=== PATIENT | female | born 1985 | race Caucasian/White ===

== ENCOUNTER 2017-04-14 17:51 | Emergency (ER) | payer BC, OTHER ==
[~2017-04-14] VITALS: Ht 167.6 cm; Wt 61.4 kg
[~2017-04-14 17:51] MED LIST: PRENTAB26 PO; PRLSR20 PO; ZVRUNK PO
[2017-04-14 18:13] VITALS: Ht 167.6 cm; Wt 61.4 kg
[2017-04-14 19:17] LABS: BASO % 0.1 %; BASO ABS # 0.02 K/uL (0-0.2); COMPLETE YES; EOS % 1.3 %; HEMATOCRIT 30.2 % (37-47); IG% 0.2 %; LYMPH % 15.3 %; LYMPH ABS # 2.52 K/uL (1.2-3.4); MEAN CELL VOLUME 92.1 fL (80-100); MEAN CORPUSCULAR HEMOGLOBIN 31.4 pg (25-34); MEAN CORPUSCULAR HGB CONC 34.1 g/dl (32-36); MEAN PLATELET VOLUME 10.5 fL (7.4-10.4); MONO % 6.8 %; NEUT % 76.3 %; PLATELET COUNT 210 K/uL (130-400); RED BLOOD COUNT 3.28 M/uL (4.2-5.4); WHITE BLOOD COUNT 16.43 K/uL (4.8-10.8)
[2017-04-14 19:19] LABS: URINE APPEARANCE CLOUDY (CLEAR); URINE BILIRUBIN NEG (NEG); URINE COLOR YELLOW; URINE EPITHELIAL CELL AUTO >30 /lpf (0-5); URINE NITRITE POS (NEG); URINE PH 5.5 (4.5-7.5); URINE SPECIFIC GRAVITY 1.018 (1.000-1.030); UROBILINOGEN NEG (NEG); ZZUR CULT IF INDIC CLEAN CATCH YES
[2017-04-14] MEDS ORDERED: CEFTRIAXONE SOD INJ 1 GM ADDVIAL IV STA (19:22)
[2017-04-14 19:27] LABS: MANUAL MICROSCOPIC REQUIRED? NO; REVIEW REQ? YES
[2017-04-14 19:33] LABS: BUN/CREATININE RATIO 19.7 (10-20); CREATININE 0.59 mg/dl (0.60-1.20); POTASSIUM 3.3 mmol/L (3.5-5.1)
--- NOTE | 2017-04-14 20:03 | EMERGENCY ROOM VISIT NOTE ---
History Report prepared by Stephany: Francisco Rosales Under the Supervision of: Dr. Wilfred Charles M.D. First contact with patient: 18:38 Chief Complaint: URINARY SYMPTOMS Stated Complaint: SEVERE UTI SX, BACK HIP PAIN R SIDE, LOSS OF BLADD Nursing Triage Summary: 21 weeks preg. started with urinary inc. last night with a lot of back pain , pt reports 1 day ago had dysuria and urinary freq. History of Present Illness The patient is a 31 year old female who presents to the Emergency Room with complaints of constant back pain that started last night. She rates her pain as a 7/10 in severity. The patient states that she is [facility] She admits [facility] and she has two children. The patient states that she has not had any issues with her . She reports that recently she has been having a hard time controlling her bladder. The patient states that she has been coughing and vomiting, but admits that she believes this is normal for her . The patient also reports that she noticed clear vaginal discharge a week ago that she thought was normal, and she denies any foul smell. She states that yesterday she started to experiencing a burning sensation when urinating and noticed that she has been frequently urinating. The patient also admits she has been experiencing back pain since last night. The patient admits she has had UTIs in the past and reports she frequently gets them. She states that she has been keeping up with fluid intake. The patient denies a history lung, heart, kidney, lung, or spleen issues. She admits that she is allergic to Bactrim. The patient denies any fever. Source of History: patient Onset: last night Position: back Symptom Intensity: 7/10 Timing: constant Associated Symptoms: + cough, + vomiting, + urinary symptoms, No fevers Review of Systems See HPI for pertinent positives & negatives. A total of 10 systems reviewed and were otherwise negative. Past Medical & Surgical Medical Problems: (1) Anxiety (2) Bunion (3) Depression (4) Umbilical hernia Surgical Problems: (1) H/O wisdom tooth extraction Family History Diabetes mellitus Liver failure Social History Smoking Status: Current Every Day Smoker Alcohol Use: none Drug Use: none Marital Status: Housing Status: lives with family Occupation Status: unemployed Current/Historical Medications Scheduled Cefdinir (Omnicef), 300 MG PO Q12H Multivit/Min/Iron/Fol Ac/Pren ( Vitamin), 1 TAB PO DAILY Allergies Coded Allergies: Sulfamethoxazole w/Trimethoprim (Verified Allergy, Severe, SHORTNESS OF BREATH, 05/14/10) Physical Exam Vital Signs Date Time Temp Pulse Resp B/P (MAP) Pulse Ox O2 Delivery O2 Flow Rate FiO2 04/14/17 20:43 36.8 97 16 106/59 97 04/14/17 18:13 37.4 91 20 100 Room Air Physical Exam GENERAL: Patient is in no acute distress. HEENT: No acute trauma, normocephalic atraumatic, mucous membranes moist, no nasal congestion, no scleral icterus. NECK: No stridor, no adenopathy, no meningismus, trachea is midline. LUNGS: Clear to auscultation bilaterally, no wheeze, no rhonchi, breath sounds equal. HEART: Without murmurs gallops or rubs, regular rate and rhythm. ABDOMEN: Soft, nontender, bowel sounds positive, no hernias, no peritonitis. Gravid uterus. BACK: Right more so than left flank discomfort with percussion EXTREMITIES: No cyanosis or edema, full range of motion of all the joints without pain or difficulty, no signs for acute trauma. NEUROLOGIC: Oriented x 3, no acute motor or sensory deficits, no focal weakness. SKIN: No rash, no jaundice, no diaphoresis. Medical Decision & Procedures ER Provider Diagnostic Interpretation: Radiology results as stated below per my review and radiologist interpretation: ULTRASOUND KIDNEYS AND BLADDER CLINICAL HISTORY: Flank pain. COMPARISON STUDY: No priors. TECHNIQUE: Real-time, grayscale, and color flow sonography of the kidneys and bladder is performed. Images are reviewed in the transverse and longitudinal planes. FINDINGS: Kidneys: The kidneys are normal in size and echotexture. The right kidney measures 11.2 cm in length and the left kidney measures 11.8 cm in length. There is mild fullness of the renal collecting system bilaterally without evidence of hydronephrosis. No shadowing renal calculi are identified. There is no sonographic evidence of contour deforming renal mass lesion. No perinephric fluid is identified. Bladder: Debris is noted within the bladder lumen. Ureteral jets were not seen. Pelvis: A live intrauterine gestation is noted. This shows an estimated heart rate of 154 bpm. IMPRESSION: 1. The kidneys are normal in size and without hydronephrosis. 2. The bladder is filled with intraluminal debris. Correlation clinically and with urinalysis for evidence of cystitis. 3. A live intrauterine gestation is noted in the pelvis. Electronically signed by: Wilfred Beebe M.D. 04/14/2017 8:14 PM Dictated Date/Time: 04/14/2017 8:12 PM Laboratory Results 04/14/17 18:00 Red Blood Count 3.28, Mean Corpuscular Volume 92.1, Mean Corpuscular Hemoglobin 31.4, Mean Corpuscular Hemoglobin Concent 34.1, Mean Platelet Volume 10.5, Neutrophils (%) (Auto) 76.3, Lymphocytes (%) (Auto) 15.3, Monocytes (%) (Auto) 6.8, Eosinophils (%) (Auto) 1.3, Basophils (%) (Auto) 0.1, Neutrophils # (Auto) 12.53, Lymphocytes # (Auto) 2.52, Monocytes # (Auto) 1.12, Eosinophils # (Auto) 0.21, Basophils # (Auto) 0.02 04/14/17 18:00 Test 04/14/17 18:00 04/14/17 18:45 White Blood Count 16.43 K/uL (4.8-10.8) Red Blood Count 3.28 M/uL (4.2-5.4) Hemoglobin 10.3 g/dL (12.0-16.0) Hematocrit 30.2 % (37-47) Mean Corpuscular Volume 92.1 fL (80-100) Mean Corpuscular Hemoglobin 31.4 pg (25-34) Mean Corpuscular Hemoglobin Concent 34.1 g/dl (32-36) Platelet Count 210 K/uL (130-400) Mean Platelet Volume 10.5 fL (7.4-10.4) Neutrophils (%) (Auto) 76.3 % Lymphocytes (%) (Auto) 15.3 % Monocytes (%) (Auto) 6.8 % Eosinophils (%) (Auto) 1.3 % Basophils (%) (Auto) 0.1 % Neutrophils # (Auto) 12.53 K/uL (1.4-6.5) Lymphocytes # (Auto) 2.52 K/uL (1.2-3.4) Monocytes # (Auto) 1.12 K/uL (0.11-0.59) Eosinophils # (Auto) 0.21 K/uL (0-0.5) Basophils # (Auto) 0.02 K/uL (0-0.2) RDW Standard Deviation 44.4 fL (36.4-46.3) RDW Coefficient of Variation 13.2 % (11.5-14.5) Immature Granulocyte % (Auto) 0.2 % Immature Granulocyte # (Auto) 0.03 K/uL (0.00-0.02) Anion Gap 11.0 mmol/L (3-11) Est Creatinine Clear Calc Drug Dose 128.1 ml/min Estimated GFR () 140.6 Estimated GFR (Non- 121.3 BUN/Creatinine Ratio 19.7 (10-20) Calcium Level 8.0 mg/dl (8.5-10.1) Urine Color YELLOW Urine Appearance CLOUDY (CLEAR) Urine pH 5.5 (4.5-7.5) Urine Specific [place] 1.018 (1.000-1.030) Urine Protein 2+ (NEG) Urine Glucose (UA) NEG (NEG) Urine Ketones NEG (NEG) Urine Occult Blood 2+ (NEG) Urine Nitrite POS (NEG) Urine Bilirubin NEG (NEG) Urine Urobilinogen NEG (NEG) Urine Leukocyte Esterase MODERATE (NEG) Urine WBC (Auto) >30 /hpf (0-5) Urine RBC (Auto) >30 /hpf (0-4) Urine Hyaline Casts (Auto) 1-5 /lpf (0-5) Urine Epithelial Cells (Auto) >30 /lpf (0-5) Urine Bacteria (Auto) 4+ (NEG) Urine Renal Epithelial Cells 0-5 /lpf (0-5) Urine Yeast (Auto) (NONE PRSENT) Laboratory results reviewed by me. Medications Administered Medications (Trade) Dose Ordered Sig/Ella Route Start Time Stop Time Status Last Admin Dose Admin Ceftriaxone Sodium (Rocephin Inj) 1 gm NOW STAT IV 04/14/17 19:22 04/14/17 19:23 DC 04/14/17 19:33 1 GM Acetaminophen (Tylenol Tab) 1,000 mg NOW STAT PO 04/14/17 20:34 04/14/17 20:35 DC 04/14/17 20:43 1,000 MG ED Course 1839: The patient was evaluated in room A12B. A complete history and physical exam was performed. 1921: Ordered Rocephin Injection 1 gm IV. 2029: I discussed the patient's case with Finn Aceves ELECTRICAL DESIGNER. He reports that she can go home and they will see her this week. 2033: Ordered Tylenol Tab 1000 mg PO. 2034: Reevaluated the patient. Discussed results and discharge instructions: She verbalized understanding and agreement. The patient is ready for discharge. Medical Decision The patient is a 31 year old female who presents to the ED with complaints of constant back pain that began last night. Differential diagnoses considered include UTI, pyelonephritis , renal colic, hydronephrosis, renal failure, and musculoskeletal pain, There is a moderate leukocytosis with a white count of 16,000, this could be consistent with infection. A mild anemia was present. No renal failure or significant electrolyte abnormality. Urinalysis does suggest infection. Urine culture is pending. Renal ultrasound did not show any significant hydronephrosis. The patient was given oral Tylenol for pain, she received IV ceftriaxone for antibiotic coverage. I spoke to the patient's bpm developer, the patient can be discharged on Omnicef with outpatient follow-up. If she is worsening, she needs to return. She does appear to have a pyelonephritis. Medication Reconcilliation Current Medication List: was personally reviewed by me Blood Pressure Screening Patient's blood pressure: Normal blood pressure Consults Time Called: 2029 Consulting Physician: Finn Aceves ELECTRICAL DESIGNER Returned Call: 2029 I discussed the patient's case with Finn Aceves ELECTRICAL DESIGNER. He reports that she can go home and they will see her this week. Impression Primary Impression: Pyelonephritis Additional Impression: Scribe Attestation The scribe's documentation has been prepared under my direction and personally reviewed by me in its entirety. I confirm that the note above accurately reflects all work, treatment, procedures, and medical decision making performed by me. Departure Information Dispostion Home / Self-Care Prescriptions Cefdinir (OMNICEF) 300 Mg Cap 300 MG PO Q12H for 10 Days, #20 CAP Prov: Wilfred Charles M.D. 04/14/17 Referrals Pilgram, Uzair A.,M.D. Forms HOME CARE DOCUMENTATION FORM, IMPORTANT VISIT INFORMATION Patient Instructions My [facility] Additional Instructions follow with ob this week fluids rest tylenol for pain omnicef 2x per day for 10 days return for vomiting, worsening symptoms, fever or if not improving Problem Qualifiers
--- NOTE | 2017-04-14 20:16 | DIAGNOSTIC IMAGING REPORT ---
ULTRASOUND KIDNEYS AND BLADDER CLINICAL HISTORY: Flank pain. COMPARISON STUDY: No priors. TECHNIQUE: Real-time, grayscale, and color flow sonography of the kidneys and bladder is performed. Images are reviewed in the transverse and longitudinal planes. FINDINGS: Kidneys: The kidneys are normal in size and echotexture. The right kidney measures 11.2 cm in length and the left kidney measures 11.8 cm in length. There is mild fullness of the renal collecting system bilaterally without evidence of hydronephrosis. No shadowing renal calculi are identified. There is no sonographic evidence of contour deforming renal mass lesion. No perinephric fluid is identified. Bladder: Debris is noted within the bladder lumen. Ureteral jets were not seen. Pelvis: A live intrauterine gestation is noted. This shows an estimated heart rate of 154 bpm. IMPRESSION: 1. The kidneys are normal in size and without hydronephrosis. 2. The bladder is filled with intraluminal debris. Correlation clinically and with urinalysis for evidence of cystitis. 3. A live intrauterine gestation is noted in the pelvis. Electronically signed by: Wilfred Beebe M.D. 04/14/2017 8:14 PM Dictated Date/Time: 04/14/2017 8:12 PM
[2017-04-14] MEDS ORDERED: CEFD300C2 PO (20:31)
[2017-04-14] MEDS ORDERED: ACETAMINOPHEN 500 MG TAB PO STA (20:34)
[2017-04-14 20:43] VITALS: BP 106/59; PULSE 97; TEMP 36.8; O2SAT 97
--- NOTE | 2017-04-16 11:47 | Pharmacy Progress Note ---
ED Pharmacist Culture FollowUp Date of Service: Apr 16, 2017. Patient was sent home with a prescription for cefdinir 300mg q12 X 10 days, which should cover the E. Coli growing from the patient's urine culture.
== END 2017-04-14 20:45 | disposition home or self-care (01) ==
LOC: C.EDB 17:53 → C.EDA 20:45
DX: O23.02 Infections of kidney in pregnancy, second trimester (principal); N12 Tubulo-interstitial nephritis, not specified as acute or chronic; Z3A.21 21 weeks gestation of pregnancy; O99.342 Other mental disorders complicating pregnancy, second trimester; F41.9 Anxiety disorder, unspecified; F32.9 Major depressive disorder, single episode, unspecified; Z83.3 Family history of diabetes mellitus; O99.332 Smoking (tobacco) complicating pregnancy, second trimester; F17.210 Nicotine dependence, cigarettes, uncomplicated

== ENCOUNTER 2017-04-14 22:37 | Outpatient (CLI) | payer OTHER ==
[~2017-04-14] VITALS: Ht 167.6 cm; Wt 62.3 kg
[~2017-04-14 22:37] MED LIST changes: +CEFD300C2 PO
[2017-04-14 23:51] VITALS: Ht 167.6 cm; Wt 62.3 kg
--- NOTE | 2017-04-14 23:52 | Progress Note ---
Progress Note Date of Service Apr 14, 2017. Progress Note Pt is 31yo @ 21 + weeks seen earlier in the ER today for Pyelo. pt was discussed with me earlier by ER physician. she was afebrile, could tolerate PO meds and so decision was made to disch Pt home on PO antibx after [id number] dose IV antibx in the ER. She was discharged home and on her way to the ER she experienced pelvic pressure so she decided to come up to L&D to be examined vaginally in order to R/O labor. On L&D FHR is obtained and I have offered pt admission for Iv antibx. vrs out patient treatment. VE is done and cervix is closed/thick/post Pt know to return for inpatient admission if she becomes febrile or unable to tolerate Po meds or does not feel better in 2 days Pt has office appt arnoldo in 48hrs
== END 2017-04-15 00:08 | disposition home or self-care (01) ==
LOC: C.OPB 22:37 → C.LD 22:38 → C.OPB 04-15 00:08
PROVIDERS: ATTEND Obstetrics & Gynecology
DX: O23.02 Infections of kidney in pregnancy, second trimester (principal); N12 Tubulo-interstitial nephritis, not specified as acute or chronic; Z3A.21 21 weeks gestation of pregnancy

== ENCOUNTER → 2017-07-17 | Outpatient (CLI) | payer OTHER ==
[~2017-07-17] MED LIST changes: -CEFD300C2 PO; -PRLSR20 PO; -ZVRUNK PO
== END | disposition home or self-care (01) ==
LOC: C.CPL 09:24
PROVIDERS: ATTEND Physician Assistant
DX: O35.9 Maternal care for (suspected) fetal abnormality and damage, unspecified (principal)

== ENCOUNTER 2017-07-21 18:54 | Emergency (ER) | payer OTHER ==
[~2017-07-21] VITALS: Ht 167.6 cm; Wt 72.3 kg
[2017-07-21 19:36] VITALS: Ht 167.6 cm; Wt 72.3 kg
[2017-07-21 21:19] VITALS: BP 116/69; PULSE 109; TEMP 36.8; O2SAT 99
[2017-07-21 22:28] LABS: INFLUENZA B ANTIGEN Neg for Influ B (NEG)
--- NOTE | 2017-07-22 00:31 | EMERGENCY ROOM VISIT NOTE ---
History Report prepared by Stephany: Hero Jasso Under the Supervision of: Dr. Anselmo Ortez M.D. First contact with patient: 21:03 Chief Complaint: FEVER Stated Complaint: FEVER, BACK PAIN- 34WKS History of Present Illness The patient is a 32 year old female who presents to the Emergency Room with complaints of a persistent fever that first onset 3 days prior to this visit. The patient states that the highest temperature she recorded was 102.0 degrees F , but is sure that it was higher the day before when she did not have a thermometer. She has also been experiencing other flu-like symptoms such as body aches, cough, and sweats. She did not get a influenza vaccination this year. The patient is also complaining of intermittent contractions. She is 35 weeks , and notes that her contractions are currently 6-7 minutes apart. She had [place] contraction a couple days ago and notes that these current contractions are stronger and more painful. She is feeling a tightness in her lower back which may also be attributed to the contractions. They are lasting about 1 minute. She has had significant vaginal discharge lately, but is not sure if her water broke or not. 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 A total of 10 systems reviewed and were otherwise negative. Past Medical & Surgical Medical Problems: (1) Anxiety (2) Bunion (3) Depression (4) uterine contractions (5) Umbilical hernia Surgical Problems: (1) H/O wisdom tooth extraction Family History Diabetes mellitus Liver failure Social History Smoking Status: Current Every Day Smoker Alcohol Use: none Drug Use: none Marital Status: Housing Status: lives with family Occupation Status: unemployed Current/Historical Medications Scheduled Multivit/Min/Iron/Fol Ac/Pren ( Vitamin), 1 TAB PO DAILY Allergies Coded Allergies: Sulfamethoxazole w/Trimethoprim (Verified Allergy, Severe, SHORTNESS OF BREATH, 07/21/17) Physical Exam Vital Signs Date Time Temp Pulse Resp B/P (MAP) Pulse Ox O2 Delivery O2 Flow Rate FiO2 07/21/17 21:19 36.8 109 20 116/69 99 Room Air 07/21/17 19:36 36.8 117 20 112/67 99 Room Air Physical Exam Constitutional: Vital signs reviewed. Eyes: Pupils are equal round reactive to light. Conjunctiva are noninjected. ENT: Pharynx is clear without erythema or exudate. Mucous membranes are moist. Neck supple without meningeal signs. Respiratory: Clear to auscultation bilaterally. Breath sounds are equal bilaterally. Cardiovascular: Regular rate and rhythm. No rubs or gallops. GI: Abdomen is Gravid and nontender. Bowel sounds are present. Musculoskeletal: No clubbing. No CVA Tenderness. Integumentary: No cyanosis. Neurological: The patient is awake and alert. No focal deficits. Psychiatric: Normal affect. Medical Decision & Procedures Laboratory Results Test 07/21/17 21:16 07/21/17 21:17 Influenza Type A Antigen Neg for Influ A (NEG) Influenza Type B Antigen Neg for Influ B (NEG) Urine Color YELLOW Urine Appearance CLEAR (CLEAR) Urine pH 7.0 (4.5-7.5) Urine Specific [place] 1.012 (1.000-1.030) Urine Protein TRACE (NEG) Urine Glucose (UA) NEG (NEG) Urine Ketones NEG (NEG) Urine Occult Blood TRACE (NEG) Urine Nitrite POS (NEG) Urine Bilirubin NEG (NEG) Urine Urobilinogen NEG (NEG) Urine Leukocyte Esterase LARGE (NEG) Urine WBC (Auto) >30 /hpf (0-5) Urine RBC (Auto) 0-4 /hpf (0-4) Urine Hyaline Casts (Auto) 1-5 /lpf (0-5) Urine Epithelial Cells (Auto) >30 /lpf (0-5) Urine Bacteria (Auto) 3+ (NEG) Laboratory results as reviewed by me. ED Course 2103: The patient was evaluated in room B8. A complete history and physical exam was performed. 2113: I discussed the case with Dr. Clayton [facility]. She will take the patient to Labor and Delivery Immediately. Medical Decision This is a 32-year-old female presents with flulike symptoms and back pain with contractions. Differential diagnosis includes influenza, UTI, pyelonephritis, active labor. I did perform a limited focused review of portions of the patient 's old chart on the electronic medical record. The patient has a ultra sound of her kidney and bladder performed 1 year ago in March. This did not show any hydronephrosis. I did assess this patient as noted above. The patient is complaining of frequent contractions every 6-7 minutes. She is 35 weeks . She does have flulike symptoms and some back pain. I was concerned about possibility of UTI or pyelonephritis or influenza. Given her contractions I was concerned about active labor and so I immediately called obstetrics who accepted patient to labor and delivery. Before she left we did send a urine analysis and rapid flu test. The body technician/painter will follow up with these results. The patient was discharged from the ED and sent to labor and delivery. Blood Pressure Screening Patient's blood pressure: Normal blood pressure Consults Time Called: 2111 Consulting Physician: Dr. Forrest Briseno [facility] Returned Call: 2113 I discussed the case with Dr. Forrest Briseno [facility]. She will take the patient to Labor and Delivery Immediately. Impression Primary Impression: Influenza-like illness Additional Impressions: Low back pain Uterine contractions at greater than 20 weeks of gestation 35 weeks gestation of Scribe Attestation The scribe's documentation has been prepared under my direct and personally reviewed by me in its entirety. I confirm that the note above accurately reflects all work, treatment, procedures, and medical decision making performed by me. Departure Information Dispostion Discharge/Transfer to [facility] (Transferred to Labor and Delivery) Referrals Uzair Love M.D. (PCP) Forms HOME CARE DOCUMENTATION FORM, IMPORTANT VISIT INFORMATION Patient Instructions My [facility] Additional Instructions Go directly to labor and delivery for further evaluation Problem Qualifiers Additional Impressions: Low back pain Chronicity: acute Back pain laterality: unspecified Sciatica laterality: sciatica laterality unspecified
== END 2017-07-21 21:19 | disposition home or self-care (01) ==
LOC: C.EDB 18:55
DX: R50.9 Fever, unspecified (principal); M79.1 Myalgia; R05 Cough; M54.5 Low back pain; O60.03 Preterm labor without delivery, third trimester; Z3A.35 35 weeks gestation of pregnancy; O99.343 Other mental disorders complicating pregnancy, third trimester; F41.9 Anxiety disorder, unspecified; F32.9 Major depressive disorder, single episode, unspecified; O99.333 Smoking (tobacco) complicating pregnancy, third trimester; F17.200 Nicotine dependence, unspecified, uncomplicated

== ENCOUNTER 2017-07-21 21:29 | Outpatient (CLI) | payer OTHER ==
[~2017-07-21] VITALS: Ht 167.6 cm; Wt 71.5 kg
[2017-07-21] MEDS ORDERED: LACTATED RINGER'S 1000ML 1,000 ML IV SCH (21:49)
[2017-07-21] MEDS ORDERED: LACTATED RINGER'S 1000ML 500 ML IV ONE (21:49)
[2017-07-21] MEDS ORDERED: FLUCONAZOLE 50 MG TAB PO ONE (22:00)
[2017-07-21] MEDS ORDERED: ONDANSETRON INJ 2 MG/ML 2 ML VIAL IV PRN (22:00)
[2017-07-21] MEDS ORDERED: ACETAMINOPHEN 325 MG TAB PO PRN (22:00)
[2017-07-21] MEDS ORDERED: CEFTRIAXONE SOD INJ 1 GM in DEXTROSE 5% ADD-VANTAGE 50ML 50 ML IV STA (22:08)
[2017-07-21] MEDS ORDERED: ACETAMINOPHEN IV 650 MG in EMPTY BAG 0 ML IV PRN (22:15)
[2017-07-21] MEDS ORDERED: SERTRALINE HCL 50 MG TAB PO SCH (22:30)
[2017-07-21 22:31] VITALS: Ht 167.6 cm; Wt 71.5 kg
[2017-07-21] MEDS ORDERED: CALCIUM CARBONATE 500 MG CHEWABLE ONE ×2 (23:06→23:07)
[2017-07-21] MEDS ORDERED: CALCIUM CARBONATE 500 MG CHEWABLE PO PRN (23:15)
[2017-07-21] MEDS ORDERED: NURSING VERBAL MED ORDER ONE (23:15)
[2017-07-22] MEDS ORDERED: TERBUTALINE SULFATE 1 MG/ML VIAL SQ ONE ×2 (00:15→02:00)
[2017-07-22 01:22] LABS: ALBUMIN 1.7 gm/dl (3.4-5.0); CALCIUM 8.2 mg/dl (8.5-10.1); CREATININE 0.6 mg/dl (0.60-1.20); POTASSIUM 3.1 mmol/L (3.5-5.1); TOTAL PROTEIN 6.1 gm/dl (6.4-8.2)
[2017-07-22 02:25] LABS: HEMATOCRIT 29.9 % (37-47); HEMOGLOBIN 10.3 g/dL (12.0-16.0); MEAN CELL VOLUME 92.3 fL (80-100); MEAN CORPUSCULAR HEMOGLOBIN 31.8 pg (25-34); MEAN PLATELET VOLUME 11.5 fL (7.4-10.4); PLATELET COUNT 177 K/uL (130-400); RED CELL DISTRIBUTION WIDTH CV 13.6 % (11.5-14.5); RED CELL DISTRIBUTION WIDTH SD 45.3 fL (36.4-46.3)
[2017-07-22 02:27] LABS: MEAN CORPUSCULAR HGB CONC 34.4 g/dl (32-36)
--- NOTE | 2017-07-22 06:36 | DIAGNOSTIC IMAGING REPORT ---
RETROPERITONEAL COMPLETE CLINICAL HISTORY: FLANK PAIN, UTI, FEVER COMPARISON STUDY: Normal ultrasound April 14, 2017. FINDINGS: The right kidney measures 14.2 cm in maximal dimension and the left measures 12.7 cm. There is mild bilateral collecting system dilatation, slightly greater on the right. The right kidney is slightly echogenic. No renal abscess is identified. No definite calculus is noted. There is an equivocal left renal calculus which is probably artifactual. Bladder is collapsed. IMPRESSION: 1. Mild bilateral collecting system dilatation, greater on the right. 2. Slight increased echogenicity of the right kidney which raises the possibility of pyelonephritis. No renal abscess. 3. Equivocal small left renal calculus which is likely artifactual. Electronically signed by: Sid Chris M.D. 07/22/2017 6:34 AM Dictated Date/Time: 07/22/2017 6:31 AM
--- NOTE | 2017-07-22 07:21 | DIAGNOSTIC IMAGING REPORT ---
LIMITED (US) CLINICAL HISTORY: NERI COMPARISON STUDY: No previous studies for comparison. TECHNIQUE: Transabdominal sonography of the pelvis was performed. FINDINGS: Please note that a dedicated anatomical survey was not performed. A single viable intrauterine gestation is noted. heart rate is normal 137 bpm. Presentation is cephalic. Amniotic fluid index is 8.9 cm. Cervix is not well evaluated on this exam. Cervix measures approximately 3.3 cm in length. There is trace fluid within the cervical canal. Placenta is within normal limits. IMPRESSION: 1. Single viable intrauterine gestation with normal heart rate. 2. No placental abnormality by sonography. 3. Amniotic fluid index of 8.9 cm. 4. Suboptimal evaluation of the cervix which measures approximately 3.3 cm in length. Electronically signed by: Sid Chris M.D. 07/22/2017 7:19 AM Dictated Date/Time: 07/22/2017 7:17 AM
[2017-07-22] MEDS ORDERED: NICOTINE 7 MG/24 HR TDSY TD SCH (08:00)
[2017-07-22] MEDS ORDERED: BUPRENORPHINE HCL 8 MG SUBL SL SCH (08:00)
--- NOTE | 2017-07-23 13:11 | Pharmacy Progress Note ---
ED Pharmacist Culture FollowUp Date of Service: Jul 23, 2017. Patient's urine cx results from 07/21 finalized today and are growing e coli. This patient presented w/ fever, back pain and possible pre term labor. She was admitted to +D on 07/21, received on dose Rocephin then was transferred via life-flight to [facility] I contacted [facility] and she is still a patient there. They requested I fax the cx results to [phone] attn: Finn OLIVIA; which I did do with successful fax confirmation.
== END 2017-07-22 02:54 | disposition short-term general hospital (02) ==
LOC: C.OPB 21:29 → C.LD 21:29 → C.OPB 07-22 02:54
PROVIDERS: ATTEND Obstetrics & Gynecology
DX: O62.9 Abnormality of forces of labor, unspecified (principal); O99.333 Smoking (tobacco) complicating pregnancy, third trimester; F17.200 Nicotine dependence, unspecified, uncomplicated; O99.343 Other mental disorders complicating pregnancy, third trimester; F32.9 Major depressive disorder, single episode, unspecified; Z3A.35 35 weeks gestation of pregnancy

== ENCOUNTER 2018-06-19 18:52 | Inpatient (IN) ==
--- NOTE | 2018-06-19 19:44 | Ultrasound Report ---
US OB limited HISTORY: 32 years-old Female no heart tones suspected demise with no heart tones COMPARISON: None available TECHNIQUE: Multiple real-time sonographic images of the deep pelvic structures were obtained transabd ominally assessing grayscale appearance, color flow and M-mode analysis FINDINGS: Single intrauterine gestation is noted. No heart rate and no movements during the study. Amniotic fluid was not measured, however appears minimal. Heterogeneous and echogenic appearance of t he placenta noted anteriorly. IMPRESSION: Findings as above compatible with demise. The above report was generated using voice recognition software. It may contain grammatical, syntax o r spelling errors. Electronically signed by: Isreal Tomas M.D. 06/19/2018 7:43 PM
[2018-06-19] MEDS ORDERED: LACTATED RINGER'S 1,000 ML IV PRN ×3 (20:12→21:58)
[2018-06-19] MEDS ORDERED: OXYTOCIN 30 UNITS/500 ML BAG IV PRN ×3 (20:12→23:59)
[2018-06-19] MEDS: LACTATED RINGER'S 1,000 ML IV SCH ×2 (20:59→21:57)
[2018-06-19] MEDS ORDERED: CALCIUM CARBONATE 500 MG CHEWABLE TAB ONE ×2 (21:05→21:06)
[2018-06-19] MEDS ORDERED: CALCIUM CARBONATE 500 MG CHEWABLE TAB PO STA (21:07)
[2018-06-19 21:22] LABS: Basophils # (auto) 0.03 K/uL (0-0.2); Basophils % (auto) 0.1 %; Eosinophils # (auto) 0.35 K/uL (0-0.5); Eosinophils % (auto) 1.5 %; Hematocrit (blood only) 28.1 % (37-47); Hemoglobin 9.5 g/dL (12.0-16.0); Immature Granulocytes # (auto) 0.08 K/uL (0.00-0.02); Immature Granulocytes % (auto) 0.3 %; Lymphocytes # (auto) 3.51 K/uL (1.2-3.4); Lymphocytes % (auto) 15.4 %; Mean Corpuscular Volume 92.4 fL (80-100); Mean Platelet Volume 10.7 fL (7.4-10.4); Monocytes % (auto) 5.2 %; Neutrophils # (auto) 17.69 K/uL (1.4-6.5); Neutrophils % (auto) 77.5 %; Platelet Count 270 K/uL (130-400); RDW Coefficient of Variation 13.4 % (11.5-14.5); RDW Standard Deviation 44.9 fL (36.4-46.3); Red Blood Count 3.04 M/uL (4.2-5.4); White Blood Count 22.86 K/uL (4.8-10.8)
[2018-06-19] MEDS ORDERED: BUPIVACAINE 0.25% 30 ML VIAL ONE (21:29)
[2018-06-19] MEDS ORDERED: ePHEDrine sulfate 50 MG/ML AMP ONE (21:29)
[2018-06-19] MEDS ORDERED: fentaNYL citrate 100 MCG/2 ML VIAL ONE ×2 (21:29→23:39)
[2018-06-19] MEDS ORDERED: fentaNYL 2MCG/ML ROPIV 1.25MG/ML 100 ML BAG EPI ONE (21:30)
[2018-06-19 21:39] LABS: Partial Thromboplastin Time 25.6 Seconds (21.0-31.0)
[2018-06-19 21:40] LABS: Alanine Aminotransferase 13 U/L (12-78); Albumin Level 2.1 gm/dl (3.4-5.0); Aspartate Aminotransferase 15 U/L (15-37); BUN Creatinine Ratio 22.8 (10-20); Blood Urea Nitrogen 9 mg/dl (7-18); Calcium 8.1 mg/dl (8.5-10.1); Carbon Dioxide 26 mmol/L (21-32); Chloride 105 mmol/L (98-107); Creatinine Clr Calc Pharmacy 201.9 ml/min; Est GFR (African American) > 150.0; Est GFR (Non-African American) 135.7; Glucose 102 mg/dl (70-99); Potassium 3.2 mmol/L (3.5-5.1); Sodium 137 mmol/L (136-145)
[2018-06-19 21:41] LABS: Mean Corpuscular Hgb Conc 33.8 g/dL (32-36)
[2018-06-19 21:43] LABS: Albumin Globulin Ratio 0.6 (0.9-2); Alkaline Phosphatase 113 U/L (45-117); Bilirubin,Total < 0.1 mg/dl (0.1-1); Globulin 3.7 gm/dl (2.5-4.0); Total Protein 5.8 gm/dl (6.4-8.2)
--- NOTE | 2018-06-19 21:55 | Anesthesiology Consultation ---
Date of Service June 19, 2018 Assessment & Plan (1) Encounter for pre-operative examination: Chart Review Chart Review: Acceptable Risk for Labor Epidural History Height/Weight Height: 5 ft 6 in Weight: 74.843 kg Allergies Allergy/AdvReac Type Severity Reaction Status Date / Time Bactrim Allergy Severe SHORTNESS Verified 07/21/17 22:31 OF BREATH sulfamethoxazole Allergy Intermediate Hives Verified 06/06/18 16:27 trimethoprim Allergy Intermediate Hives Verified 06/06/18 16:23 Medications Home Medications Medication Instructions Recorded Confirmed Last Taken amoxicillin-pot clavulanate 1 tab PO Q12H #18 tab 06/06/18 06/19/18 06/19/18 [Augmentin] buprenorphine HCl 8 mg SUBLINGUAL DAILY 06/06/18 06/19/18 06/19/18 vit-iron fum-folic ac 1 PO 06/19/18 06/18/18 [ Vitamin] Active Medications Generic Name Dose Route Start Last Admin Trade Name Freq PRN Reason Stop Dose Admin Lactated Ringer's 1,000 mls @ 125 mls/hr 06/19/18 20:15 06/19/18 20:59 Lr IV 06/21/18 20:14 999 mls/hr .Q8H ALEK Administration Past Medical History Medical History Umbilical hernia Depression Anxiety Social History Smoking Status: Current every day smoker tobacco type: cigarettes Do You Dip or Chew Tobacco: No Hx Alcohol Use: No Hx Substance Use: No substance use type: former substance user and prescription drug Last Used Substance Other:: Two years ago. Physical Exam Vital Signs Last Vital Signs Temp 36.8 C 06/19/18 21:02 Pulse 76 06/19/18 21:52 Resp 18 06/19/18 21:02 BP 114/55 L 06/19/18 21:51 Pulse Ox 98 06/19/18 21:52 Testing Laboratory Results 06/19/18 21:11 06/19/18 21:11 PT 10.0 Seconds (9.0-12.0) 06/19/18 21:11 INR 1.0 (0.9-1.1) 06/19/18 21:11 APTT 25.6 Seconds (21.0-31.0) 06/19/18 21:11
[2018-06-19] MEDS ORDERED: ePHEDrine sulfate 50 MG/ML AMP IV PRN (21:58)
[2018-06-19] MEDS ORDERED: DiphenhydrAMINE HCL 50 MG/ML VIAL IV PRN (21:58)
[2018-06-19] MEDS ORDERED: fentaNYL 2MCG/ML ROPIV 1.25MG/ML 100 ML BAG EPI PRN (21:58)
[2018-06-19] MEDS ORDERED: NALOXONE HCL 1 MG in SODIUM CHLORIDE 0.9% 1000ML 1,000 ML IV PRN (21:58)
[2018-06-19] MEDS ORDERED: NALOXONE HCL 0.4 MG/1 ML VIAL/CARP IV PRN (21:58)
[2018-06-19] MEDS ORDERED: NALBUPHINE HCL INJ 10 MG/ML AMP IV PRN (21:58)
[2018-06-19] MEDS ORDERED: LIDOCAINE HCL 2% MPF (LOCAL) 5 ML VIAL INFIL ONE (23:38)
[2018-06-19] MEDS ORDERED: METHYLERGONOVINE MALEATE 0.2 MG/ML AMP ONE (23:48)
[2018-06-19] MEDS ORDERED: METHYLERGONOVINE MALEATE 0.2 MG/ML AMP IM ONE (23:59)
[2018-06-19] MEDS ORDERED: miSOPROStol 200 MCG TAB PR ONE (23:59)
[2018-06-19] MEDS ORDERED: BISACODYL 10 MG SUPP PR PRN (23:59)
[2018-06-19] MEDS ORDERED: DIPHTHERIA/TETANUS/PERTUSSIS 0.5 ML SYR/VIAL IM ONE (23:59)
[2018-06-19] MEDS ORDERED: SUPERCREAM 0.870% 15 GM JAR EXT PRN (23:59)
[2018-06-19] MEDS ORDERED: HYDROCORTISONE ACETATE 25 MG SUPP PR PRN (23:59)
[2018-06-19] MEDS ORDERED: BENZOCAINE 20% AER SPR 82.5 GM CAN EXT PRN (23:59)
[2018-06-20] MEDS ORDERED: miSOPROStol 200 MCG TAB ONE
[2018-06-20 02:10] LABS: Amphetamines+Metham, Urine Neg (Neg); Barbiturates, Urine Neg (Neg); Benzodiazepine, Urine Neg (Neg); Cocaine, Urine Neg (Neg); MDMA (Ecstacy), Urine Neg (Neg); Methadone, Urine Neg (Neg); Opiate, Urine Neg (Neg); Phencyclidine, Urine Neg (Neg)
[2018-06-20] MEDS ORDERED: BISACODYL 10 MG SUPP PR PRN (02:34)
[2018-06-20] MEDS ORDERED: BENZOCAINE 20% AER SPR 82.5 GM CAN EXT PRN (02:34)
[2018-06-20] MEDS ORDERED: HYDROCORTISONE ACETATE 25 MG SUPP PR PRN (02:34)
[2018-06-20] MEDS ORDERED: SUPERCREAM 0.870% 15 GM JAR EXT PRN (02:34)
[2018-06-20] MEDS ORDERED: IBUPROFEN 600 MG TAB PO PRN (02:34)
[2018-06-20] MEDS ORDERED: DIPHTHERIA/TETANUS/PERTUSSIS 0.5 ML SYR/VIAL IM ONE (02:34)
[2018-06-20] MEDS ORDERED: ACETAMINOPHEN 325 MG TAB PO PRN (02:34)
[2018-06-20] MEDS ORDERED: OXYTOCIN 30 UNITS/500 ML BAG IV PRN (02:34)
[2018-06-20] MEDS ORDERED: IBUPROFEN 600 MG TAB PO ONE (02:42)
[2018-06-20] MEDS: NITROFURANTOIN MONOHYDRATE 100 MG CAP PO SCH ×2 (02:44→09:40)
--- NOTE | 2018-06-20 03:23 | Delivery Summary ---
DATE OF OPERATION: 06/19/2018 DELIVERY NOTE: The patient delivered fetus with Apgars 0, 0 at 33 weeks and 6 days status post demise. The was delivered with placenta and cord altogether. Estimated blood loss was 400 mL. There was no laceration or tears in the vagina. There was good hemostasis at the end of the delivery. Inspection showed no lacerations in the vagina. Placenta was sent to pathology for pathologic analysis. I attest to the content of the Intraoperative Record and any orders documented therein. Any exception s are noted below.
--- NOTE | 2018-06-20 04:44 | Anesthesia Procedure Note ---
Date of Service June 20, 2018 Anesthesia Post Epidural Note Vital Signs Vital Signs: Temp Pulse Resp BP Pulse Ox 06/20/18 01:22 88 130/60 06/20/18 01:07 91 H 126/56 L 06/20/18 00:53 85 126/59 L 06/20/18 00:50 37.4 C 18 06/20/18 00:37 89 122/78 06/20/18 00:22 80 124/63 06/20/18 00:07 105 H 116/60 06/19/18 23:53 96 H 126/69 06/19/18 23:52 91 H 99 06/19/18 23:47 94 H 98 06/19/18 23:42 119 H 100 06/19/18 23:40 18 06/19/18 23:38 90 127/72 06/19/18 23:37 97 H 100 06/19/18 23:32 87 100 06/19/18 23:31 84 83 L 06/19/18 23:30 18 06/19/18 23:27 78 100 06/19/18 23:23 80 135/60 06/19/18 23:22 85 100 06/19/18 23:17 84 100 06/19/18 23:15 18 06/19/18 23:12 79 97 06/19/18 23:09 79 117/64 06/19/18 23:08 82 116/63 06/19/18 23:07 81 97 06/19/18 23:02 77 97 06/19/18 23:00 18 06/19/18 22:57 71 97 06/19/18 22:53 73 110/60 06/19/18 22:52 75 97 06/19/18 22:47 72 98 06/19/18 22:45 18 06/19/18 22:42 73 98 06/19/18 22:37 73 100 06/19/18 22:35 78 110/55 L 06/19/18 22:32 87 99 06/19/18 22:30 73 18 115/57 L 06/19/18 22:27 72 100 06/19/18 22:25 84 106/55 L 06/19/18 22:22 73 99 06/19/18 22:20 18 06/19/18 22:19 74 124/56 L 06/19/18 22:17 80 99 06/19/18 22:13 112/65 06/19/18 22:12 73 100 06/19/18 22:11 81 109/59 L 06/19/18 22:10 18 06/19/18 22:09 77 112/55 L 06/19/18 22:07 81 116/55 L 100 06/19/18 22:06 73 115/59 L 06/19/18 22:03 74 119/55 L 06/19/18 22:02 77 100 06/19/18 22:01 77 108/57 L 06/19/18 22:00 18 06/19/18 21:58 75 109/57 L 06/19/18 21:57 75 99 06/19/18 21:56 76 134/69 06/19/18 21:55 18 06/19/18 21:53 68 114/57 L 06/19/18 21:52 76 98 06/19/18 21:51 69 114/55 L 06/19/18 21:50 18 06/19/18 21:49 66 109/58 L 06/19/18 21:47 72 98/56 L 99 06/19/18 21:46 74 18 99/51 L 06/19/18 21:42 75 100 06/19/18 21:38 87 88 L 06/19/18 21:37 80 100 06/19/18 21:32 78 100 06/19/18 21:02 36.8 C 18 06/19/18 20:52 36.8 C 18 06/19/18 19:30 84 99 06/19/18 19:25 101 H 99 06/19/18 19:20 85 100 06/19/18 19:15 92 H 131/71 100 06/19/18 19:10 92 H 100 06/19/18 19:05 144 H 100 06/19/18 19:00 89 100 Pain Intensity Lower Back: Pain Intensity: 4 Notes Mental Status: alert / awake / arousable and participated in evaluation Nausea / Vomiting: adequately controlled Pain: adequately controlled Airway Patency, RR, SpO2: stable & adequate BP & HR: stable & adequate Hydration State: stable & adequate Neuraxial Anesthesia: was administered and sensory block is resolving Anesthetic Complications: no major complications apparent and Pt Satisfied with anesthetic care Epidural: Removed without complications and With tip intact
--- NOTE | 2018-06-20 05:14 | History and Physical Report ---
DATE OF ADMISSION: 06/19/2018 HISTORY OF PRESENT ILLNESS: This is a 32-year-old G4, P3, due date 08/01/2018 making her 35 weeks 6 days today, who presented to labor and delivery with contractions. In the labor and delivery, heart rate could not be documented. Ultrasound was done by me and by radiology, and unfortunately, patient was found to have demise. Soon afterwards, patient began to bleed. Exam shows she was 3 cm, 50% effaced. Her course was complicated by history of late care. Patient has a history of drug abuse, has been on Subutex 2 mg daily. PAST MEDICAL HISTORY: History of drug abuse, history of depression, history of ADHD, migraines, anxiety, depression. PAST SURGICAL HISTORY: History of osteotomy, bunion surgery, and colposcopy. ALLERGIES: PATIENT IS ALLERGIC TO BACTRIM (SULFAMETHOXAZOLE AND TRIMETHOPRIM). SOCIAL HISTORY: Patient is a smoker, history of drug use. He is on Subutex 2 mg twice daily. PHYSICAL EXAMINATION: GENERAL: Well-developed and well-nourished white female, in discomfort. HEART: S1 and S2, regular rhythm and rate. LUNGS: Clear to auscultation bilaterally. ABDOMEN: Gravid. Baseline ultrasound shows cephalic presentation. There is no heartbeat. EXTREMITIES: No cyanosis, clubbing, or edema. PELVIC: Patient was 3 cm, 50% effaced, and -3 on admission. ASSESSMENT AND PLAN: A 32-year-old G4, P3 at 33 weeks and 6 days with demise. Patient is admitted, and plan is to induce labor.
[2018-06-20 06:45] LABS: Estimated Average Glucose 117 mg/dl
[2018-06-20] MEDS ORDERED: FERROUS SULFATE 325 MG TAB PO SCH (09:00)
[2018-06-20] MEDS ORDERED: PRENATAL VITAMIN 1 TAB PO SCH ×2 (09:00)
[2018-06-20] MEDS ORDERED: BUPRENORPHINE HCL 2 MG SUBL SL SCH (09:00)
[2018-06-20] MEDS ORDERED: NICOTINE 21 MG/24 HR TDSY TD SCH (09:00)
[2018-06-20] MEDS ORDERED: DOCUSATE SODIUM 100 MG CAP PO SCH ×2 (09:00)
[2018-06-20 09:07] LABS: Hemoglobin 8.7 g/dL (12.0-16.0); Mean Corpuscular Volume 91.9 fL (80-100); Mean Platelet Volume 10.6 fL (7.4-10.4); Platelet Count 233 K/uL (130-400); RDW Coefficient of Variation 13.3 % (11.5-14.5); RDW Standard Deviation 44.6 fL (36.4-46.3); Red Blood Count 2.83 M/uL (4.2-5.4); White Blood Count 17.89 K/uL (4.8-10.8)
[2018-06-20 09:31] LABS: Basophils # (auto) 0.03 K/uL (0-0.2); Basophils % (auto) 0.2 %; Eosinophils # (auto) 0.15 K/uL (0-0.5); Eosinophils % (auto) 0.8 %; Immature Granulocytes # (auto) 0.05 K/uL (0.00-0.02); Immature Granulocytes % (auto) 0.3 %; Lymphocytes # (auto) 3.43 K/uL (1.2-3.4); Lymphocytes % (auto) 19.2 %; Mean Corpuscular Hgb Conc 33.5 g/dL (32-36); Monocytes # (auto) 0.78 K/uL (0.11-0.59); Monocytes % (auto) 4.4 %; Neutrophils # (auto) 13.45 K/uL (1.4-6.5); Neutrophils % (auto) 75.1 %; RBC Morphology Unremarkable
[2018-06-20 09:52] LABS: Amphetamines+Metham, Urine Neg (Neg); Barbiturates, Urine Neg (Neg); Benzodiazepine, Urine Neg (Neg); Cocaine, Urine Neg (Neg); MDMA (Ecstacy), Urine Neg (Neg); Methadone, Urine Neg (Neg); Opiate, Urine Neg (Neg); Phencyclidine, Urine Neg (Neg)
--- NOTE | 2018-06-20 10:09 | Obstetrical Progress Note ---
Date of Service June 20, 2018 Subjective in room with baby crying no bleeding or pain now Physical Exam 2 Vital Signs (Past 24 Hours): Last Vital Signs Temp 36.9 C 06/20/18 07:09 Pulse 86 06/20/18 07:09 Resp 20 06/20/18 07:09 BP 113/55 L 06/20/18 07:09 Pulse Ox 99 06/19/18 23:52 Constitutional: WD/WN, vitals as above comfortable will discharge home folow up in 4 weeks or as needed
[2018-06-21] MEDS ORDERED: BISACODYL 5 MG TABEC PO SCH ×2 (20:00)
[2018-06-25 14:01] LABS: Anti Nuclear Antibody Screen NEGATIVE (NEGATIVE); Interpretation DNR; Toxoplasma Gondii IgM <8.00 AU/mL (<8.00)
[2018-06-26 16:41] LABS: CMV IgG Antibody <0.60 U/ML; Herpes Simplex Ab IgG-2 < 0.90 INDEX (< 0.90); Toxoplasma gondii IgG Ab, EIA <0.91
[2018-06-29 13:59] LABS: HSV1 IgM Titer(Reflex Only) 1:20 (<1:20)
== END 2018-06-20 11:45 | disposition home or self-care (01) | DRG 806 ==
LOC: OPB 18:52 → 4S1 18:55